=== PATIENT | male | born 1985 | race Caucasian/White ===

== ENCOUNTER → 2016-12-17 | Outpatient (REF) | payer OTHER ==
[2016-12-17 12:00] LABS: BASO % 0.4 % (0.0-1.0); EOS # 0.1 K/mm3 (0.0-0.50); EOS % 1.7 % (0.0-3.0); LARGE UNSTAINED CELL # 0.1 K/mm3 (0.0-0.4); LARGE UNSTAINED CELL % 1.7 % (0.0-4.0); LYMPH # 2.4 K/mm3 (1.5-4.5); LYMPH % 29.8 % (24.0-44.0); MEAN CORPUSCULAR HEMOGLOBIN 30.1 pg (27.0-33.0); MEAN CORPUSCULAR HGB CONC 32.8 g/dl (32.0-36.5); MEAN CORPUSCULAR VOLUME 91.7 fl (80.0-96.0); MONO # 0.5 K/mm3 (0.0-0.8); NEUTROPHILS # 4.9 K/mm3 (1.8-7.7); NEUTROPHILS % 60.5 % (36.0-66.0); PLATELET COUNT, AUTOMATED 271 k/mm3 (150-450); RED CELL DISTRIBUTION WIDTH 13.2 % (11.5-14.5); WHITE BLOOD COUNT 8.2 K/mm3 (4.0-10.0)
[2016-12-17 12:01] LABS: FOLATE 3.8 NG/ML; VITAMIN B12 LEVEL 520 PG/ML
[2016-12-17 12:33] LABS: ALBUMIN 3.8 GM/DL (3.2-5.2); ALBUMIN/GLOBULIN RATIO 1.19 (1.00-1.93); ALKALINE PHOSPHATASE 107 U/L (45-117); ALT/SGPT 18 U/L (12-78); ANION GAP 6 MEQ/L (8-16); AST/SGOT 11 U/L (15-37); BILIRUBIN,TOTAL 0.2 MG/DL (0.2-1.0); BLOOD UREA NITROGEN 11 MG/DL (7-18); CALCIUM LEVEL 8.7 MG/DL (8.5-10.1); CARBON DIOXIDE LEVEL 29 MEQ/L (21-32); CHLORIDE LEVEL 105 MEQ/L (98-107); CREATININE FOR GFR 0.83 MG/DL (0.70-1.30); GLOMERULAR FILTRATION RATE > 60.0 (>60); GLUCOSE, FASTING 65 MG/DL (70-105); POTASSIUM SERUM 4.4 MEQ/L (3.5-5.1); SODIUM LEVEL 140 MEQ/L (136-145)
== END ==
LOC: M SFHCLERA 10:13
PROVIDERS: ATTEND Family Medicine
DX: R53.83 Other fatigue (principal); N28.9 Disorder of kidney and ureter, unspecified

== ENCOUNTER 2017-05-31 23:44 | Emergency (ER) | payer OTHER ==
[~2017-05-31] VITALS: Ht 170.2 cm; Wt 57.7 kg
[2017-05-31 23:45] VITALS: BP 147/85
[2017-06-01] MEDS ORDERED: CLEO300C2 PO (00:05)
[2017-06-01] MEDS ORDERED: TYLE325T5 PO (00:06)
== END 2017-06-01 01:02 | disposition left against medical advice (07) ==
LOC: M ED 23:44
DX: K08.89 Other specified disorders of teeth and supporting structures (principal); Z53.21 Procedure and treatment not carried out due to patient leaving prior to being seen by health care provider

== ENCOUNTER 2017-10-31 15:06 | Emergency (ER) | payer OTHER ==
[2017-10-31] MEDS ORDERED: LIDOCAINE 2% MDV 20 ML VIAL SC (17:30)
[2017-10-31] MEDS: CLINDAMYCIN 150 MG CAP PO (17:38)
== END 2017-10-31 18:06 | disposition home or self-care (01) ==
LOC: M ED 15:06
DX: K04.7 Periapical abscess without sinus (principal); Z88.5 Allergy status to narcotic agent; F17.210 Nicotine dependence, cigarettes, uncomplicated
CPT/HCPCS: 99283

== ENCOUNTER → 2024-10-27 | Outpatient (REF) | payer OTHER ==
[~2024-10-27] MED LIST: CLEO300C2 PO; TYLE325T5 PO
== END ==
LOC: M LAB REF 21:19
PROVIDERS: ATTEND Physician Assistant Medical
DX: R05.9 Cough, unspecified (principal)

== ENCOUNTER 2025-08-25 12:37 | Emergency (ER) | payer OTHER ==
[~2025-08-25] VITALS: Ht 165.1 cm; Wt 55.1 kg
[2025-08-25 13:24] LABS: PLATELET COUNT, AUTOMATED 296 10^3/uL (150-450)
[2025-08-25 13:50] LABS: AMPHETAMINES LEVEL URINE NEGATIVE (NEGATIVE); BARBITURATES URINE NEGATIVE (NEGATIVE); BENZODIAZEPINES URINE NEGATIVE (NEGATIVE); COCAINE METABOLITE URINE NEGATIVE (NEGATIVE); METHADONE URINE NEGATIVE (NEGATIVE); OPIATES URINE NEGATIVE (NEGATIVE); PHENCYCLIDINE URINE NEGATIVE (NEGATIVE)
[2025-08-25 13:51] LABS: CANNABINOIDS URINE POSITIVE (NEGATIVE); ETHYL ALCOHOL (ETHANOL) < 0.003 % (0.000-0.010)
[2025-08-25 13:53] LABS: ALT/SGPT 19 U/L (7.0-40); AST/SGOT 20 U/L (<34); CALCIUM LEVEL 8.9 MG/DL (8.5-10.1); CARBON DIOXIDE LEVEL 27 MMOL/L (20-31); CHLORIDE LEVEL 108 MMOL/L (98-107); CREATININE FOR GFR 0.84 MG/DL (0.70-1.30); GLOMERULAR FILTRATION RATE > 90.0 (>60); POTASSIUM SERUM 3.7 MMOL/L (3.5-5.1); SALICYLATE LEVEL < 3.0 MG/DL (<30); SODIUM LEVEL 142 MMOL/L (136-145)
[2025-08-25 16:15] VITALS: BP 134/84; TEMP 98.6; O2SAT 98
== END 2025-08-25 16:17 | disposition home or self-care (01) ==
LOC: M ED 13:37
DX: F32.A Depression, unspecified (principal); Q61.2 Polycystic kidney, adult type; F17.200 Nicotine dependence, unspecified, uncomplicated; Z88.5 Allergy status to narcotic agent

== ENCOUNTER 2025-08-26 15:40 | Inpatient (IN) | payer OTHER ==
[~2025-08-26] VITALS: Ht 167.6 cm; Wt 51.3 kg
[2025-08-26 16:21] LABS: PLATELET COUNT, AUTOMATED 339 10^3/uL (150-450)
[2025-08-26 16:45] LABS: AMPHETAMINES LEVEL URINE NEGATIVE (NEGATIVE); BARBITURATES URINE NEGATIVE (NEGATIVE); BENZODIAZEPINES URINE NEGATIVE (NEGATIVE); COCAINE METABOLITE URINE NEGATIVE (NEGATIVE); METHADONE URINE NEGATIVE (NEGATIVE)
[2025-08-26 16:46] LABS: OPIATES URINE NEGATIVE (NEGATIVE); PHENCYCLIDINE URINE NEGATIVE (NEGATIVE)
[2025-08-26 16:48] LABS: ETHYL ALCOHOL (ETHANOL) < 0.003 % (0.000-0.010)
[2025-08-26 16:50] LABS: SALICYLATE LEVEL < 3.0 MG/DL (<30)
[2025-08-26 17:02] LABS: ALT/SGPT 21 U/L (7.0-40); AST/SGOT 24 U/L (<34); CALCIUM LEVEL 9.5 MG/DL (8.5-10.1); CANNABINOIDS URINE POSITIVE (NEGATIVE); CARBON DIOXIDE LEVEL 29 MMOL/L (20-31); CHLORIDE LEVEL 111 MMOL/L (98-107); CREATININE FOR GFR 0.92 MG/DL (0.70-1.30); GLOMERULAR FILTRATION RATE > 90.0 (>60); POTASSIUM SERUM 4.8 MMOL/L (3.5-5.1); SODIUM LEVEL 148 MMOL/L (136-145)
[2025-08-26] MEDS ORDERED: MOM 30 ML SUSPENSION UDC PO PRN (17:55)
[2025-08-26] MEDS ORDERED: IBUPROFEN 400 MG TAB PO PRN (17:55)
[2025-08-26] MEDS ORDERED: HOME MED LIST COMPLETE! XX SCH (18:15)
[2025-08-26 19:25] VITALS: BP 171/108
[2025-08-26 22:18] VITALS: BP 135/98; TEMP 97.4; O2SAT 98
[2025-08-27] MEDS: risperiDONE 0.5 MG TAB PO SCH (09:00)
[2025-08-27 09:34] LABS: FREE T4 1.19 NG/DL (0.89-1.76); THYROXINE (T4) 8.6 UG/DL (4.5-10.9)
[2025-08-27 15:30] VITALS: BP 154/94; TEMP 98.6; O2SAT 99
[2025-08-28 06:21] VITALS: BP 162/101; TEMP 97.6; O2SAT 100
[2025-08-28] MEDS: DIVALPROEX 250 MG TAB PO SCH (13:19)
[2025-08-28 18:16] VITALS: BP 142/85; TEMP 97.4
[2025-08-28] MEDS: RISPERIDONE 1 MG TAB PO SCH (20:05)
[2025-08-29 06:29] VITALS: BP 156/89; TEMP 97.3; O2SAT 98
[2025-08-29 15:19] VITALS: BP 144/78; TEMP 98; O2SAT 97
[2025-08-29] MEDS: DIVALPROEX 250 MG TAB PO SCH (20:17)
[2025-08-30 06:14] VITALS: BP 139/90; TEMP 97.4; O2SAT 99
[2025-08-30] MEDS: DIVALPROEX 250 MG TAB PO SCH (08:21)
[2025-08-30 15:47] VITALS: BP 133/69; TEMP 97.8; O2SAT 98
[2025-08-31 06:10] VITALS: BP 132/86; TEMP 97.7; O2SAT 98
[2025-08-31 15:48] VITALS: BP 140/86; TEMP 97.8; O2SAT 98
[2025-09-01 06:23] VITALS: BP 138/87; TEMP 97.5; O2SAT 98
[2025-09-01] MEDS: RISPERIDONE 1 MG TAB PO SCH (08:02)
[2025-09-01 17:02] VITALS: BP 131/90; TEMP 97.9; O2SAT 97
[2025-09-01] MEDS: traZODone 50 MG TAB PO PRN (20:01)
[2025-09-02 06:29] VITALS: BP 124/75; TEMP 97.3; O2SAT 98
[2025-09-02 15:17] VITALS: BP 115/80; TEMP 97.8; O2SAT 99
[2025-09-03 06:28] VITALS: BP 120/75; TEMP 97; O2SAT 98
[2025-09-03 15:05] VITALS: BP 142/93; TEMP 98; O2SAT 100
[2025-09-04 06:29] VITALS: BP 151/88; TEMP 97.7; O2SAT 98
[2025-09-04] MEDS ORDERED: ISOVUE-370 76% 100 ML VIAL As Ordered ONE (08:31)
[2025-09-04 15:21] VITALS: BP 136/92; TEMP 98; O2SAT 98
[2025-09-04] MEDS: HALOPERIDOL 5 MG TAB PO SCH (20:04)
[2025-09-05 06:34] VITALS: BP_SYST 127; BP_SYST 142; BP_DIAS 72; TEMP 97; TEMP 97.8; O2SAT 100; O2SAT 98
[2025-09-05] MEDS: NICOTINE 14 MG/24 HR TRANSDERMAL TD SCH (12:31)
[2025-09-05 18:53] VITALS: BP 133/79; TEMP 97.7
[2025-09-05] MEDS: DIVALPROEX 250 MG *ER* TAB PO SCH (20:40)
[2025-09-05] MEDS: HALOPERIDOL 10 MG TAB PO SCH (20:40)
[2025-09-06 06:34] VITALS: BP 137/88; TEMP 97.5; O2SAT 99
[2025-09-06] MEDS: HALOPERIDOL 5 MG TAB PO SCH (08:01)
[2025-09-06 15:17] VITALS: BP 142/84; TEMP 98.5; O2SAT 99
[2025-09-06] MEDS: RAMELTEON 8 MG TAB PO SCH (20:23)
[2025-09-07 06:50] VITALS: BP 147/70; TEMP 97.4; O2SAT 99
[2025-09-07] MEDS: MAALOX 30 ML SUSP *UDC PO PRN (13:57)
[2025-09-07 15:12] VITALS: BP 117/78; TEMP 97.5; O2SAT 99
[2025-09-08 06:20] VITALS: BP 117/79; TEMP 98.1; O2SAT 99
[2025-09-08] MEDS ORDERED: RAME8TAB2 PO (08:50)
[2025-09-08] MEDS ORDERED: HALO10TA20 PO (08:50)
[2025-09-08] MEDS ORDERED: HALO5TAB33 PO (08:50)
[2025-09-08] MEDS ORDERED: DEPA250T PO (08:50)
[2025-09-08] MEDS: ACETAMINOPHEN 325 MG TAB PO PRN (10:57)
== END 2025-09-08 11:32 | disposition home or self-care (01) | DRG 751 ==
LOC: M ED 15:40 → M ED INP 17:53 → M PSY 21:48
PROVIDERS: ADMIT General Practice; ATTEND Psychiatry & Neurology Psychiatry
DX: F29 Unspecified psychosis not due to a substance or known physiological condition (principal); F41.9 Anxiety disorder, unspecified; F12.150 Cannabis abuse with psychotic disorder with delusions; F10.10 Alcohol abuse, uncomplicated; F17.210 Nicotine dependence, cigarettes, uncomplicated; Z88.5 Allergy status to narcotic agent; F20.9 Schizophrenia, unspecified